=== PATIENT | female | born 1990 | race Hispanic/Latino ===

== ENCOUNTER 2018-01-22 05:48 | Day surgery (SDC) | payer OTHER ==
[~2018-01-22 05:48] MED LIST: NACL 0.9% IR ONE
[2018-01-22] MEDS ORDERED: NACL BACTERIOSTATIC INFILTRATI ONE (06:45)
[2018-01-22] MEDS ORDERED: TORADOL IV PRN (07:02)
--- NOTE | 2018-01-22 07:04 | Anesthesia Consultation ---
Anesthesia Consult and Med Hx Date of service: 01/22/18 - Airway Anesthetic Teeth Evaluation: Good ROM Head & Neck: Adequate Mental/Hyoid Distance: Adequate Mallampati Class: Class I Intubation Access Assessment: Good - Pulmonary Exam CTA: Yes - Cardiac Exam Cardiac Exam: RRR - Pre-Operative Health Status ASA Pre-Surgery Classification: ASA1, ASA2 Proposed Anesthetic Plan: General - Pulmonary Hx Smoking: Yes (former) Hx Asthma: Yes (Treated only with resp illnesses) Hx Pneumonia: Yes (2 mos ago, all symptoms resolved) Hx Sleep Apnea: Yes (No CPAP) - Central Nervous System Hx Seizures: Yes (Febrile as a child, last age 1) Hx Psychiatric Problems: Yes - Hematic Hx Anemia: Yes (past hx) - Other Systems Hx Cancer: No
--- NOTE | 2018-01-22 07:05 | Anesthesia Day of Surgery ---
Anesthesia Day of Surgery - Day of Surgery Patient Examined: Yes Patient H&P Reviewed: Yes Patient is NPO: Yes
[2018-01-22] MEDS ORDERED: DIPRIVAN 10 MG/ML IV ONE (07:21)
[2018-01-22] MEDS ORDERED: SUBLIMAZE ONE (07:22)
[2018-01-22] MEDS ORDERED: METHYLENE BLUE ONE (07:47)
[2018-01-22] MEDS ORDERED: MARCAINE 0.25% INFILTRATI ONE ×2 (07:48→08:41)
--- NOTE | 2018-01-22 07:52 | Short Stay Summary ---
Short Stay Documentation Date of service: 01/22/18 - History Principal diagnosis: Patient here for elective sterilization and treatment of heavy bleeding H&P: obtained from office Past Medical History: No medical history Past Surgical History: No surgical history Social history: - Allergies and Medications Current Medications: Allergies latex Allergy (Verified 01/17/18 09:03) whelps Opioids - Morphine Analogues Allergy (Verified 01/17/18 09:03) flu like symptoms pineapple Allergy (Verified 01/17/18 09:03) blisters in mouth Sulfa (Sulfonamide Antibiotics) Allergy (Verified 01/17/18 09:03) flu like symptoms Yeast Allergy (Verified 01/17/18 09:03) hives, blisters in mouth, SOB alcohol Adverse Reaction (Verified 01/22/18 07:41) blisters Home Medications Medication Instructions Recorded Confirmed Last Taken Type Cetirizine HCl [ZyrTEC] 10 mg PO DAILY 01/17/18 01/17/18 Unknown History Desloratadine [Clarinex] 5 mg PO PRN PRN 01/17/18 01/17/18 Unknown History EPINEPHrine [Epipen] 0.3 mg IJ PRN PRN 01/17/18 01/17/18 Unknown History Multivitamin [Multiple Vitamins] 1 each PO DAILY 01/17/18 01/17/18 Unknown History Active Medications Lactated Ringer's (Lactated Ringers) 1,000 mls @ 42 mls/hr IV DIRECT RUPESH Last Admin: 01/22/18 07:48 Dose: 42 mls/hr Cefazolin Sodium (Ancef/Sterile Water 2 Gm/20 Ml) 2 gm in 20 mls @ 80 mls/hr IV PREOP NR; Protocol Ketorolac Tromethamine (Toradol) 30 mg IV ONCE PRN PRN Reason: Pain, Moderate (4-6) Stop: 01/22/18 23:45 Midazolam HCl (Versed) 2 mg IV PREOP NR Stop: 01/22/18 23:59 Last Admin: 01/22/18 07:51 Dose: 2 mg - Physical exam General appearance: no acute distress Integumentary: no rash HEENT: Atraumatic Lungs: Clear to auscultation, Normal air movement Breasts: deferred Heart: Regular rate, Normal S1, Normal S2 Gastrointestinal: normal, normoactive bowel sounds Female Genitourinary: deferred Rectal Exam: deferred Extremities: No edema - Brief post op/procedure progress note Date of procedure: 01/22/18 Pre-op diagnosis: Elective sterilization, Menorrhagia Post-op diagnosis: same (with endometrial polyps) Procedure: laparoscopic tubal ligation, Novasure endometrial ablation Anesthesia: GETA Findings: Normal uterus, tubes and ovaries, Thickened endometrium with polyps Surgeon: GOLDIE WILKERSON Estimated blood loss: minimal Pathology: list (endometrial curretings) Specimen disposition: to lab Condition: stable - Hospital course Hospital course: unremarkable - Disposition Condition at discharge: Good Disposition: DC-01 TO HOME OR SELFCARE Short Stay Discharge Plan Activity: no restrictions Weight Bearing Status: Weight Bear as Tolerated Diet: regular Follow up with: GOLDIE WILKERSON MD [Staff Physician] - 14 Days Prescriptions: HYDROcodone/ACETAMINOPHEN [[place] 7.5-325 Tablet] 1 each PO Q6H #20 tablet Ibuprofen 800 mg PO Q6H #50 tablet
[2018-01-22] MEDS ORDERED: LACTATED RINGERS 1,000 ML IV SCH (08:00)
[2018-01-22] MEDS ORDERED: ANCEF/STERILE WATER 2 GM/20 ML 2 GM/20 ML SYRINGE IV NR (08:00)
[2018-01-22] MEDS ORDERED: VERSED IV NR (08:00)
[2018-01-22] MEDS ORDERED: XYLOCAINE MPF 2% ONE (08:40)
[2018-01-22] MEDS ORDERED: TORADOL ONE (08:41)
[2018-01-22] MEDS ORDERED: ROBINUL ONE (08:41)
[2018-01-22] MEDS ORDERED: ZEMURON IV ONE ×2 (08:41)
[2018-01-22] MEDS ORDERED: QUELICIN ONE (08:41)
[2018-01-22] MEDS ORDERED: NEOSTIGMINE ONE (08:42)
[2018-01-22] MEDS ORDERED: NACL 0.9% IR ONE ×2 (08:54→09:30)
--- NOTE | 2018-01-22 10:16 | Operative Report ---
Operative Report Operative Report: Preoperative diagnosis: 1. Undesired fertility 2. Menorrhagia Postoperative diagnosis: Same with endometrial polyps Procedure: 1. Bilateral tubal fulguration 2. NovaSure endometrial ablation Surgeon: Alicia Li Anesthesia: General EBL: Minimal IV fluids: 1200 Urine output: 200 Findings:[Normal uterus tubes and ovaries with thickened endometrial lining and endometrial polyps Specimens: Endometrial curettings Complications: None The patient was properly identified as herself. She was then taken to the OR with IV running and in place. She was given general anesthesia without difficulty. She was placed in a dorsal lithotomy position. She was then prepped and draped in normal sterile fashion. Attention was turned to the patient's vagina. Her bladder was drained of clear urine with a red rubber catheter. The speculum was then placed the patient's vagina. The cervix was visualized and grasped with tenaculum. The acorn cannula was then inserted. The surgeon's gloves were changed and attention turned to the patient's abdomen. A small incision was made in the patient's umbilicus incision a 5 mm trocar was placed. The laparoscope confirmed intra-abdominal placement. The abdomen was insufflated with CO2 gas to approximately 25 mmHg. Both fallopian tubes were identified. With direct visualization a second trocar was placed through an incision in the left lower quadrant. Both tubes were found and followed out to the fimbriated ends. Each tube was cauterized at the midportion until there was an area of blanching to expand 3 cm. There was excellent hemostasis at the end of this portion of the procedure. At this point the abdomen was deflated. All instruments were then removed from the abdomen. The incisions were then closed with 4-0 Monocryl. The incisions were also injected with quarter percent Marcaine. Attention was then turned to the patient's vagina. This the acorn was removed and the speculum was placed. The uterus was then gently sounded once again to approximately 8 cm in length. Cervical length was sounded to be 4 cm . The scope was inserted and the endometrial lining was observed. Sharp curettage was then performed with a small banjo curette. NovaSure ablation was done with the following measurements length 4.5 cm, width 2.5 cm. The cycle lasted for 2 minutes. Once the cycle was completed all instruments removed the patient's vagina. A follow- up hysteroscopy also revealed significant phoebe throughout the endometrial lining. The patient tolerated the procedure well she was then awakened and taken recovery in stable condition. Sponge needle and instrument counts were correct 2.
[2018-01-22] MEDS ORDERED: ZOFRAN IV PRN (10:33)
[2018-01-22 11:28] VITALS: BP 110/59
--- NOTE | 2018-01-22 16:16 | Post Anesthesia Evaluation ---
- Post Anesthesia Evaluation Patient Participated: Yes Airway Patent: Yes Stable Respiratory Function: Yes Nausea/Vomiting: No Temp > 96.8F: Yes Pain Manageable: Yes Adequeate Hydration: Yes Anesthesia Complications: No Patient on Ventilator: No
== END 2018-01-22 11:16 | disposition home or self-care (01) ==
LOC: OR 05:48
PROVIDERS: ATTEND Obstetrics & Gynecology
DX: Z30.2 Encounter for sterilization (principal); N84.0 Polyp of corpus uteri; G47.30 Sleep apnea, unspecified; Z88.4 Allergy status to anesthetic agent; Z91.040 Latex allergy status; Z91.018 Allergy to other foods; Z88.2 Allergy status to sulfonamides; Z87.891 Personal history of nicotine dependence
CPT/HCPCS: 58563; 58670; 81025; 88305; A4217; J0330; J0690; J1885; J2250; J2405; J2704; J2710; J7120; Q9968; J3010